=== PATIENT | male | born 1985 | race Two or more races ===

== ENCOUNTER 2018-09-26 21:51 | Emergency (ER) | payer SELFPAY ==
[~2018-09-26] VITALS: Ht 182.9 cm; Wt 96.2 kg
[2018-09-26 22:35] VITALS: BP 123/72
--- NOTE | 2018-09-26 22:35 | NUR ---
ED Nurse Note: Pt arrived ED from home. c/o back pain on and off for one year and got wrose today. Pt is A/O X 4, Vital signs stable at this time, waiting for orders.
[2018-09-26] MEDS ORDERED: Ketorolac 30mg Inj IM ONE (23:00)
[2018-09-26] MEDS ORDERED: HYDROcodone/Acetamin 5/325 tab ORAL ONE (23:00)
[2018-09-26] MEDS ORDERED: Methocarbamol 750mg tab ORAL ONE (23:00)
[2018-09-27] VITALS: BP 124/81
[2018-09-27] MEDS ORDERED: Morphine Sulfate 4mg/ml Inj (IV USE ONLY) IVP ONE (00:30)
--- NOTE | 2018-09-27 01:00 | NUR ---
ED Nurse Note: Blood sample sent to Lab
--- NOTE | 2018-09-27 01:18 | NUR ---
ED Nurse Note: Pt went to CT scan
[2018-09-27 01:24] LABS: BASOPHILS % (AUTO) 1.2 % (0.0-2.0); EOSINOPHILS % (AUTO) 3.9 % (0.0-3.0); HEMATOCRIT 45.1 % (42.0-52.0); HEMOGLOBIN 15.6 G/DL (14.2-18.0); LYMPHOCYTES % (AUTO) 32.8 % (20.0-45.0); MEAN CORPUSCULAR VOLUME 88 FL (80-99); MONOCYTES % (AUTO) 12.2 % (1.0-10.0); NEUTROPHILS % (AUTO) 49.9 % (45.0-75.0); PLATELET COUNT 240 K/UL (150-450); RED BLOOD COUNT 5.14 M/UL (4.70-6.10); RED CELL DISTRIBUTION WIDTH 11.5 % (11.6-14.8); WHITE BLOOD COUNT 7.9 K/UL (4.8-10.8)
[2018-09-27 01:33] LABS: ANION GAP 9 mmol/L (5-15); BLOOD UREA NITROGEN 15 mg/dL (7-18); CALCIUM 8.7 MG/DL (8.5-10.1); CARBON DIOXIDE 24 MMOL/L (21-32); CHLORIDE 102 MMOL/L (98-107); POTASSIUM 3.5 MMOL/L (3.5-5.1); SODIUM 135 MMOL/L (136-145)
[2018-09-27 01:37] LABS: ALANINE AMINOTRANSFERASE 51 U/L (12-78); ALBUMIN 3.8 G/DL (3.4-5.0); ALKALINE PHOSPHATASE 98 U/L (46-116); ASPARTATE AMINO TRANSFERASE 9 U/L (15-37); BILIRUBIN,TOTAL 0.3 MG/DL (0.2-1.0)
[2018-09-27] MEDS ORDERED: ROBAXIN-750750 MG PO (02:43)
[2018-09-27] MEDS ORDERED: IBUPROFEN600 MG ORAL (02:43)
[2018-09-27] MEDS ORDERED: LIDODERM700 M1 TOPIC (02:43)
[2018-09-27] MEDS ORDERED: NORCO 5-325 TA1 EACH ORAL (02:43)
[2018-09-27 02:50] VITALS: BP 130/75
--- NOTE | 2018-09-27 02:55 | NUR ---
ER DISCHARGE NOTE: Patient is cleared to be discharged per ERMD, pt is aox4, on room air, with stable vital signs. pt was given dc and prescription instructions, pt was able to verbalize understanding, pt id band and iv site removed without complications. pt is able to ambulate with steady gait with family. pt took all belongings.
[2018-09-27 02:58] VITALS: BP 130/75
--- NOTE | 2018-09-27 05:51 | Emergency Room Report ---
History of Present Illness General Chief Complaint: Back Pain-No Injury Source: Patient Present Illness HPI 33-year-old male presents ED for evaluation. Patient complaining of lower back pain. States that last night his "back locked up". Denies any fall or injury. States that he has been experiencing back pain for the last year and has 2 slipped disks in his back. States he underwent physical therapy without significant help. He is not sure what the next steps will be. Denies bowel or bladder incontinence. Denies leg or motor weakness. Pain is 10 out of 10, throbbing, nonradiating. No other aggravating relieving factors. Denies any other associated symptoms Allergies: Coded Allergies: No Known Allergies (Unverified , 09/26/18) Patient History Past Medical History: other - herniated disk Past Surgical History: none Pertinent Family History: none Social History: Denies: smoking, alcohol use, drug use Immunizations: UTD Reviewed Nursing Documentation: PMH: Agreed; PSxH: Agreed Nursing Documentation-PMH Hx Neurological Problems: Yes - Henia disc Review of Systems All Other Systems: negative except mentioned in HPI Physical Exam Vital Signs Date Time Temp Pulse Resp B/P (MAP) Pulse Ox O2 Delivery O2 Flow Rate FiO2 09/26/18 22:24 98.8 84 18 124/74 (91) 96 Room Air Sp02 EP Interpretation: reviewed, normal General Appearance: no apparent distress, alert, GCS 15, non-toxic Head: normocephalic, atraumatic Eyes: bilateral eye normal inspection, bilateral eye PERRL ENT: hearing grossly normal, normal pharynx, no angioedema, normal voice Neck: full range of motion, supple/symm/no masses Respiratory: chest non-tender, lungs clear, normal breath sounds, speaking full sentences Cardiovascular #1: regular rate, rhythm, no edema Cardiovascular #2: 2+ carotid (R), 2+ carotid (L), 2+ radial (R), 2+ radial (L) , 2+ dorsalis pedis (R), 2+ dorsalis pedis (L) Gastrointestinal: normal bowel sounds, non tender, soft, non-distended, no guarding, no rebound Rectal: deferred Genitourinary: normal inspection, no CVA tenderness Musculoskeletal: gait/station normal, normal range of motion, tender - paraspinal lumbar tenderness Neurologic: alert, oriented x3, responsive, motor strength/tone normal, sensory intact, speech normal Psychiatric: judgement/insight normal, memory normal, mood/affect normal, no suicidal/homicidal ideation Reflexes: 3+ bicep (R), 3+ bicep (L), 3+ tricep (R), 3+ tricep (L), 3+ knee (R) , 3+ knee (L) Skin: normal color, no rash, warm/dry, well hydrated Lymphatic: no adenopathy Medical Decision Making Diagnostic Impression: Primary Impression: Sciatica Qualified Codes: M54.31 - Sciatica, right side; M54.32 - Sciatica, left side ER Course Hospital Course 33-year-old male presents to ED with back pain Differential diagnoses include: fracture, contusion, sciatica Clinical course Patient placed on stretcher. After initial history and physical I ordered pain meds After reassessment patient continues to have pain and states pain is not resolved. I ordered additional pain meds and CT of L-spine CT L spine shows disc bulge at 2 sites no fracture. discussed findings with patient. Patient states he still has some pain but it is overall improved and he is able to walk. I offered option for admission but he prefers to be discharged at this time. I will provide orthopedic referrals and pain medications I feel this is a highly complex case requiring extensive working including EKG/ Rhythm strip, Xray/CT/US, Blood/urine lab work, repeat exams while in ED, and administration of strong opiates/narcotics for pain control, admission to hospital or close patient follow up. Diagnosis - sciatica stable and discharged to home. followup with PMD. return to ED if symptoms recur/worsen. CT/MRI/US Diagnostic Results CT/MRI/US Diagnostic Results : Imaging Test Ordered: CT L spine Impression No acute bony abnormality. Small to moderate central/left paracentral disc extrusion at L4-5 which may contribute to mild spinal stenosis. No significant neural foraminal narrowing. Follow-up MR recommended for better visualization of the extent of disc disease as indicated Mild disc bulge at L5-S1. Last Vital Signs Date Time Temp Pulse Resp B/P (MAP) Pulse Ox O2 Delivery O2 Flow Rate FiO2 09/27/18 02:58 98.5 71 18 130/75 100 Room Air Status: improved Disposition: HOME, SELF-CARE Condition: Stable Scripts Methocarbamol* (ROBAXIN-750*) 750 Mg Tablet 750 MG PO TID, #21 TAB 0 Refills Prov: Peterson Baptiste MD 09/27/18 Lidocaine (Lidoderm) 1 Each Adh..patch 1 PATCH TOPIC DAILY, #7 PATCH 0 Refills Patch(es) may remain in place for up to 12 hours in any 24-hour period. Prov: Peterson Baptiste MD 09/27/18 Hydrocodone Bit/Acetaminophen 5-325* (NORCO 5-325*) 1 Each Tablet 1 TAB ORAL Q6H PRN for For Pain, #12 TAB 0 Refills Prov: Peterson Baptiste MD 09/27/18 Ibuprofen* (MOTRIN*) 600 Mg Tablet 600 MG ORAL Q8H PRN for For Pain, #30 TAB 0 Refills Prov: Peterson Baptiste MD 09/27/18 Referrals: NOT CHOSEN IPA/,REFERRING (PCP) [facility] Open 24 hour /7 days a week by Appointment Only [address] [facility] [id number] Patient Instructions: Sciatica Peterson Baptiste MD Sep 27, 2018 05:51
--- NOTE | 2018-09-27 17:46 | Diagnostic Imaging Report ---
Indications: Back pain Technique: Spiral acquisitions obtained through the lumbar spine. Multiplanar reconstructions were generated. No IV contrast utilized. Total dose length product 759.05 mGycm. CTDIvol(s) 19.38 mGy. Dose reduction achieved using automated exposure control Comparison: none Findings: Bony alignment is normal. Vertebral body heights are preserved. Disc spaces are preserved. No acute fractures. No dislocations. At L4-5, there is mild circumferential annular bulge and slight left paracentral disc protrusion. This may result in mild spinal stenosis and lateral recess compromise.. The included extraspinal soft tissues are remarkable for mild hepatic low attenuation consistent with fatty change. There are small fat-containing bilateral inguinal hernias incidentally noted. Impression: No acute bony trauma Mild disc disease, as detailed above Incidental findings as noted, including possible mild hepatic fatty change The CT scanner at [facility] is accredited by the [employer] and the scans are performed using protocols designed to limit radiation exposure to as low as reasonably achievable to attain images of sufficient resolution adequate for diagnostic evaluation.
== END 2018-09-27 02:59 | disposition home or self-care (01) ==
LOC: EMR 22:43
DX: M51.16 Intervertebral disc disorders with radiculopathy, lumbar region (principal)
CPT/HCPCS: 36415; 72131; 80053; 85025; 96372; 96374; 99284; J1885; J2270; J7040